=== PATIENT | male | born 1945 | race Caucasian/White ===

== ENCOUNTER 2018-04-04 00:35 | Emergency (ER) | payer MEDICARE, OTHER ==
--- NOTE | 2018-04-04 01:19 | ERPHSYRPT ---
- History of Present Illness Time Seen by Provider: 04/04/18 01:15 Source: patient Exam Limitations: no limitations Patient Subjective Stated Complaint: pt is alert and oriented. pt is ambulatory. pt states he fell from a standing postion on a small step stool. he landed on his left side on a cinder block. pt has no obvious deformaties, no bruising, no open wounds. pt denies LOC, or hitting his head. pt denies dizziness and attributes the fall to loss of balance. tender upon palpatation. some firmness noted to the left side where pt states pain is. Triage Nursing Assessment: see above Physician History: pt hit left lateral flank and his increasing pain after fall from step onto concrete block - no LOC no other c/o injury Occurred: this evening Reason for Fall: slipped Injuries/Pain Location: abdomen Loss of Consciousness: no loss of consciousness Quality: fullness, throbbing Severity of Pain-Max: moderate Severity of Pain-Current: moderate Associated Symptoms (Fall): abdominal pain, back pain Allergies/Adverse Reactions: Sulfa (Sulfonamide Antibiotics) Allergy (Mild, Verified 03/25/18 15:08) Rash Home Medications: Fexofenadine HCl [Jessica] 180 mg PO DAILY 03/25/18 [History] Glipizide Xl 5 mg [Glucotrol Xl 5 MG] 5 mg PO QAM 03/25/18 [History] Glipizide [Glipizide ER] 10 mg PO QPM 03/25/18 [History] Lisinopril 5 mg [Zestril 5 MG] 5 mg PO BID 03/25/18 [History] Metformin HCl [Glucophage] 1,000 mg PO BID 03/25/18 [History] Omeprazole Magnesium [Prilosec Otc] 20 mg PO DAILY 03/25/18 [History] Saw [place] Fruit [Saw [place]] 450 mg PO BID 03/25/18 [History] Hx Tetanus, Diphtheria Vaccination/Date Given: Yes Hx Influenza Vaccination/Date Given: No Hx Pneumococcal Vaccination/Date Given: No Immunizations Up to Date: Yes - Review of Systems Constitutional: No Fever, No Chills Eyes: No Symptoms Ears, Nose, & Throat: No Symptoms Respiratory: No Cough, No Dyspnea Cardiac: No Chest Pain, No Edema, No Syncope Abdominal/Gastrointestinal: Abdominal Pain, No Nausea, No Vomiting, No Diarrhea Genitourinary Symptoms: No Dysuria Musculoskeletal: Back Pain, No Neck Pain Skin: No Rash Neurological: No Dizziness, No Focal Weakness, No Sensory Changes Psychological: No Symptoms Endocrine: No Symptoms All Other Systems: Reviewed and Negative - Past Medical History Pertinent Past Medical History: Yes Neurological History: No Pertinent History ENT History: No Pertinent History Cardiac History: Hypertension Respiratory History: No Pertinent History Endocrine Medical History: Diabetes Type II Musculoskeletal History: Arthritis GI Medical History: GERD, Ulcer History: No Pertinent History Psycho-Social History: No Pertinent History Male Reproductive Disorders: No Pertinent History Other Medical History: hx hiatal hernia - Past Surgical History Past Surgical History: Yes Neuro Surgical History: No Pertinent History Cardiac: No Pertinent History Respiratory: No Pertinent History Gastrointestinal: Cholecystectomy Genitourinary: No Pertinent History Musculoskeletal: Orthopedic Surgery Male Surgical History: No Pertinent History Other Surgical History: Knee surgery both right x2 - Social History Smoking Status: Never smoker Exposure to second hand smoke: No Drug Use: none - Nursing Vital Signs Nursing Vital Signs: Initial Vital Signs Temperature 97.9 F 04/04/18 00:36 Pulse Rate 68 04/04/18 00:36 Respiratory Rate 18 04/04/18 00:36 Blood Pressure 178/75 04/04/18 00:36 O2 Sat by Pulse Oximetry 99 04/04/18 00:36 Pain Scale Pain Intensity 5 - Kyle Coma Score Best Eye Response (Kyle): (4) open spontaneously Best Verbal Response (Kyle): (5) oriented Best Motor Response ([place]): (6) obeys commands [place] Total: 15 - Physical Exam General Appearance: no apparent distress, alert Head Injury: no evidence of injury Eye Exam: PERRL/EOMI ENT Exam: airway nml Neck Exam: normal inspection, No tenderness Respiratory/Chest Exam: normal breath sounds, No chest tenderness, No respiratory distress Cardiovascular Exam: normal heart sounds, regular rate/rhythm Gastrointestinal Exam: soft, No tenderness, No distention, No guarding, No ecchymosis Rectal Exam: deferred Back Exam: normal inspection, No vertebral tenderness Extremity Exam: normal inspection, normal range of motion, pelvis stable, No deformities Neurologic Exam: alert, oriented x 3, cooperative, sensation nml, No motor deficits Skin Exam: normal color, warm, dry SpO2: 99 Oxygen Delivery: Room Air - Course Nursing assessment & vital signs reviewed: Yes - CT Exams Abdomen/Pelvis CT Interpretation: Tele-radiologist Report, DJD, Normal Appendix, No Fracture Ordered Tests: Active Orders 24 hr Category Date Time Status Clean Catch Urine Specimen STAT Care 04/04/18 01:19 Active IV Insertion STAT Care 04/04/18 02:46 Active NPO (ED) STAT Care 04/04/18 01:19 Active ABDOMEN AND PELVIS W/0 CONTRAS [CT] Stat Exams 04/04/18 01:20 Taken RECONSTRUCTION [CT] Routine Exams 04/04/18 01:32 Taken AMYLASE Stat Lab 04/04/18 01:37 Completed CBC W DIFF Stat Lab 04/04/18 01:37 Completed CMP Stat Lab 04/04/18 01:37 Completed LIPASE Stat Lab 04/04/18 01:37 Completed Lactic Acid Stat Lab 04/04/18 01:35 Completed Lactic Acid Stat Lab 04/04/18 04:10 Results UA W/RFX UR CULTURE Stat Lab 04/04/18 03:36 Completed Medication Summary Discontinued Medications Generic Name Dose Route Start Last Admin Trade Name Micahq PRN Reason Stop Dose Admin Sodium Chloride 1,000 mls @ 999 mls/hr 04/04/18 02:46 04/04/18 03:18 Sodium Chloride 0.9% 1000 Ml IV 04/04/18 03:46 999 mls/hr .Q1H1M STA Administration Sodium Chloride Confirm 04/04/18 03:13 Sodium Chloride 0.9% 1000 Ml Administered 04/04/18 03:14 Dose 1,000 mls @ ud .ROUTE .STK-MED ONE Lab/Rad Data: Laboratory Result Diagrams 04/04/18 01:37 04/04/18 01:37 Laboratory Results 04/04/18 04/04/18 04/04/18 Range/Units 04:10 03:36 01:37 WBC (4.0-10.5) K/mm3 RBC (4.1-5.6) M/mm3 Hgb (12.5-18.0) gm/dl Hct (42-50) % MCV (78-100) fl MCH (26-32) pg MCHC (32-36) g/dl RDW (11.5-14.0) % Plt Count (150-450) K/mm3 MPV (6-9.5) fl Gran % (36.0-66.0) % Eos # (Auto) (0-0.5) Absolute Lymphs (auto) (1.0-4.6) Absolute Monos (auto) (0.0-1.3) Lymphocytes % (24.0-44.0) % Monocytes % (0.0-12.0) % Eosinophils % (0.00-5.0) % Basophils % (0.0-0.4) % Absolute Granulocytes (1.4-6.9) Basophils # (0-0.4) Sodium 138 (137-145) mmol/L Potassium 3.8 (3.5-5.1) mmol/L Chloride 104 (98-107) mmol/L Carbon Dioxide 22 (22-30) mmol/L Anion Gap 15.5 H (5-15) MEQ/L BUN 19 (9-20) mg/dL Creatinine 1.13 (0.66-1.25) mg/dL Estimated GFR > 60.0 ML/MIN Glucose 304 H (74-106) mg/dL Lactic Acid 1.9 (0.4-2.0) Calcium 9.8 (8.4-10.2) mg/dL Total Bilirubin 0.40 (0.2-1.3) mg/dL AST 24 (17-59) U/L ALT 25 (0-50) U/L Alkaline Phosphatase 80 (38-126) U/L Serum Total Protein 6.9 (6.3-8.2) g/dL Albumin 4.4 (3.5-5.0) g/dL Amylase 54 (30-110) U/L Lipase 94 (23-300) U/L Urine Color STRAW (YELLOW) Urine Appearance CLEAR (CLEAR) Urine pH 5.0 (5-6) Ur Specific [place] 1.014 (1.005-1.025) Urine Protein NEGATIVE (Negative) Urine Ketones NEGATIVE (NEGATIVE) Urine Blood MODERATE (0-5) Rene/ul Urine Nitrite NEGATIVE (NEGATIVE) Urine Bilirubin NEGATIVE (NEGATIVE) Urine Urobilinogen NEGATIVE (0-1) mg/dL Ur Leukocyte Esterase NEGATIVE (NEGATIVE) Urine WBC (Auto) 0-2 (0-5) /HPF Urine RBC (Auto) 6-10 (0-2) /HPF U Epithel Cells (Auto) RARE (FEW) /HPF Urine Mucus (Auto) SLIGHT (NEGATIVE) /HPF Urine Culture Reflexed NO (NO) Urine Glucose >=500 (NEGATIVE) mg/dL 04/04/18 04/04/18 Range/Units 01:37 01:35 WBC 5.5 (4.0-10.5) K/mm3 RBC 4.50 (4.1-5.6) M/mm3 Hgb 12.6 (12.5-18.0) gm/dl Hct 38.6 L (42-50) % MCV 85.8 (78-100) fl MCH 28.0 (26-32) pg MCHC 32.6 (32-36) g/dl RDW 15.0 H (11.5-14.0) % Plt Count 134 L (150-450) K/mm3 MPV 10.6 H (6-9.5) fl Gran % 64.5 (36.0-66.0) % Eos # (Auto) 0.13 (0-0.5) Absolute Lymphs (auto) 1.37 (1.0-4.6) Absolute Monos (auto) 0.45 (0.0-1.3) Lymphocytes % 24.7 (24.0-44.0) % Monocytes % 8.1 (0.0-12.0) % Eosinophils % 2.3 (0.00-5.0) % Basophils % 0.4 (0.0-0.4) % Absolute Granulocytes 3.57 (1.4-6.9) Basophils # 0.02 (0-0.4) Sodium (137-145) mmol/L Potassium (3.5-5.1) mmol/L Chloride (98-107) mmol/L Carbon Dioxide (22-30) mmol/L Anion Gap (5-15) MEQ/L BUN (9-20) mg/dL Creatinine (0.66-1.25) mg/dL Estimated GFR ML/MIN Glucose (74-106) mg/dL Lactic Acid 2.6 H (0.4-2.0) Calcium (8.4-10.2) mg/dL Total Bilirubin (0.2-1.3) mg/dL AST (17-59) U/L ALT (0-50) U/L Alkaline Phosphatase (38-126) U/L Serum Total Protein (6.3-8.2) g/dL Albumin (3.5-5.0) g/dL Amylase (30-110) U/L Lipase (23-300) U/L Urine Color (YELLOW) Urine Appearance (CLEAR) Urine pH (5-6) Ur Specific [place] (1.005-1.025) Urine Protein (Negative) Urine Ketones (NEGATIVE) Urine Blood (0-5) Rene/ul Urine Nitrite (NEGATIVE) Urine Bilirubin (NEGATIVE) Urine Urobilinogen (0-1) mg/dL Ur Leukocyte Esterase (NEGATIVE) Urine WBC (Auto) (0-5) /HPF Urine RBC (Auto) (0-2) /HPF U Epithel Cells (Auto) (FEW) /HPF Urine Mucus (Auto) (NEGATIVE) /HPF Urine Culture Reflexed (NO) Urine Glucose (NEGATIVE) mg/dL - Progress Progress: improved, re-examined Counseled pt/family regarding: lab results, diagnosis, need for follow-up, rad results - Departure Time of Disposition: 04:36 Departure Disposition: Home Clinical Impression: Hematuria, left flank contusion Condition: Good Critical Care Time: No Instructions: Contusion (DC), Preventing Falls, Blood in the Urine (Hematuria) in Adults Additional Instructions: followup with your to recheck the blood in the urine; although the CT did not show any serious internal injury, there still could be pathology evolving so return if any dizziness, vomiting, or increased pain ;
[2018-04-04 01:41] LABS: BASOPHIL % 0.4 % (0.0-0.4); Basophil (Absolute #) 0.02 (0-0.4); Eosinophil % 2.3 % (0.00-5.0); Eosinophil (Absolute #) 0.13 (0-0.5); Granulocyte Absolute (ANC) 3.57 (1.4-6.9); Granulocytes % 64.5 % (36.0-66.0); Hematocrit 38.6 % (42-50); Hemoglobin 12.6 gm/dl (12.5-18.0); Lymphocyte (Absolute #) 1.37 (1.0-4.6); Lymphocytes % 24.7 % (24.0-44.0); Mean Cell Volume 85.8 fl (78-100); Mean Corpuscular Hgb Concent. 32.6 g/dl (32-36); Mean Platelet Volume 10.6 fl (6-9.5); Monocyte (Absolute #) 0.45 (0.0-1.3); Monocytes % 8.1 % (0.0-12.0); Platelet Count 134 K/mm3 (150-450); White Blood Count 5.5 K/mm3 (4.0-10.5)
[2018-04-04 01:42] LABS: Lactic Acid 2.6 (0.4-2.0)
[2018-04-04 01:58] LABS: ALBUMIN 4.4 g/dL (3.5-5.0); ALKALINE PHOSPHATASE 80 U/L (38-126); AMYLASE 54 U/L (30-110); ANION GAP 15.5 MEQ/L (5-15); BLOOD UREA NITROGEN 19 mg/dL (9-20); CHLORIDE 104 mmol/L (98-107); Calcium 9.8 mg/dL (8.4-10.2); Carbon Dioxide 22 mmol/L (22-30); Creatinine 1 1.13 mg/dL (0.66-1.25); Glucose 304 mg/dL (74-106); LIPASE 94 U/L (23-300); Potassium 3.8 mmol/L (3.5-5.1); SGOT/AST 24 U/L (17-59); SGPT/ALT 25 U/L (0-50); SODIUM 138 mmol/L (137-145); Total Protein 6.9 g/dL (6.3-8.2)
[2018-04-04] MEDS ORDERED: Sodium Chloride 0.9% 1000 ML 1,000 ML IV STA (02:46)
[2018-04-04] MEDS ORDERED: Sodium Chloride 0.9% 1000 ML 1,000 ML ONE (03:13)
[2018-04-04 03:45] LABS: Appearance CLEAR (CLEAR); Bilirubin NEGATIVE (NEGATIVE); Blood MODERATE Ery/ul (0-5); Glucose >=500 mg/dL (NEGATIVE); Ketones NEGATIVE (NEGATIVE); Leukocyte Esterase NEGATIVE (NEGATIVE); Nitrite NEGATIVE (NEGATIVE); Protein,Urine Dip NEGATIVE (Negative); Specific Gravity 1.014 (1.005-1.025); Urobilinogen NEGATIVE mg/dL (0-1)
[2018-04-04 04:14] LABS: Lactic Acid 1.9 (0.4-2.0)
[2018-04-04 05:11] VITALS: BP 163/67; PULSE 68; O2SAT 100
--- NOTE | 2018-04-04 07:14 | XRAY ---
Indication: Left-sided pain following fall. Multiple contiguous axial images obtained through the abdomen and pelvis without contrast as ordered. Comparison: None Lung bases demonstrates bibasilar fibrosis/scarring and mild bilateral dependent atelectasis. No infiltrate or effusion. Heart is not enlarged. Moderate sized hiatal hernia. Noncontrasted stomach and bowel loops appear nonobstructed. Mild diffuse scattered colonic fecal debris throughout. Mild diffuse fatty liver. Previous cholecystectomy. Spleen is enlarged measuring 16 cm in greatest axial dimension. Enlarged prostate gland impresses on the base of the bladder. Remaining liver, pancreas, spleen, adrenal glands, kidneys, ureters, and bladder appear unremarkable for noncontrast exam. Mild aortoiliac calcifications without AAA. Osseous structures intact with mild multilevel spinal bridging/nonbridging endplate osteophytes and mild degenerative changes of both hips. No ventral or inguinal hernias. Impression: 1. Fecal stasis without obstruction. 2. Hiatal hernia, fatty liver, splenomegaly, and enlarged prostate gland. 3. No acute intra-abdominal/pelvic abnormalities on this noncontrasted exam. Comment: Preliminary interpretation was made by [facility]. No critical discrepancy. CTDI 28.03
--- NOTE | 2018-04-04 07:18 | XRAY ---
Indication: Left-sided pain following fall. Axial, sagittal, and coronal reformatted images of the lumbar spine performed using the raw data from the CT abdomen/pelvis study of the same day. Comparison: None No acute fracture or suspicious bony lesions. There are mild multilevel bridging/non-bridging endplate osteophytes, mild L3-L4-L5 broad-based disc bulge, moderate bilateral L4-L5-S1 degenerative facet hypertrophy, and degenerative fusion of the right SI joint. No obvious large disc herniation or spinal canal stenosis. Sagittal and coronal reformatted images demonstrates normal lumbar alignment with vertebral body heights and disc spaces maintained. No compression fracture or subluxation. CT abdomen/pelvis reported separately. Impression: 1. Negative acute fracture. 2. Multilevel degenerative spondylosis. Comment: Preliminary interpretation was made by [facility]. No critical discrepancy. CTDI 28.03
== END 2018-04-04 05:09 | disposition home or self-care (01) ==
LOC: ED 00:35
DX: R31.9 Hematuria, unspecified (principal); S30.1XXA Contusion of abdominal wall, initial encounter; W17.89XA Other fall from one level to another, initial encounter; Y92.9 Unspecified place or not applicable; E11.9 Type 2 diabetes mellitus without complications; Z79.4 Long term (current) use of insulin; K21.9 Gastro-esophageal reflux disease without esophagitis; M19.90 Unspecified osteoarthritis, unspecified site; I10 Essential (primary) hypertension; K44.9 Diaphragmatic hernia without obstruction or gangrene
CPT/HCPCS: 36000; 36415; 74176; 76376; 80053; 81001; 82150; 83605; 83690; 85025; 96360; 99284

== ENCOUNTER 2018-04-19 08:06 | Day surgery (SDC) | payer MEDICARE ==
--- NOTE | 2018-04-19 07:45 | HP ---
DATE OF SURGERY: 04/19/2018 HISTORY OF PRESENT ILLNESS: The patient's last colonoscopy was five years ago. He has prior history of polyps. He is in need of follow up screening colonoscopy. He denies any bloody stools or change in bowel movements. He has had loose stools since he had his gallbladder out in the past. PAST MEDICAL HISTORY: Diabetes, hypertension. PAST SURGICAL HISTORY: Cholecystectomy. Right knee surgery. Forearm surgery in the past. MEDICATIONS: Zyrtec, lisinopril, glipizide, metformin, Prilosec. ALLERGIES: SULFA. FAMILY HISTORY: Negative for colon cancer. Diabetes. Heart disease. SOCIAL HISTORY: No smoking or alcohol abuse. REVIEW OF SYSTEMS: Twelve systems reviewed. No chest pain or palpitations other systems negative or noncontributory as above and per preadmission questionnaire. PHYSICAL EXAMINATION: GENERAL: No acute distress. HEENT: Sclerae nonicteric. NECK: No JVD. CHEST: Equal excursion, nonlabored breathing. CVS: Regular rate and rhythm. ABDOMEN: Soft. No peritoneal signs. EXTREMITIES: No significant edema. NEURO: Alert, oriented, moving extremities symmetrically. No gross motor deficits noted. RECTAL: Deferred timed to endoscopy exam. IMPRESSION: History of polyp, in need of screening colonoscopy. I feel the patient is a candidate. Shown the risk sheet, explained the procedure in detail including but not limited to bleeding or infection, small risk of bowel injury or perforation possibly requiring open procedure, small risk of missed or nondiagnosis or incomplete exam possibly requiring barium enema, other studies or procedures, general risk of anesthesia or sedation but not limited to. He understands and agrees to the planned procedure and will proceed with outpatient follow up screening colonoscopy.
[2018-04-19] MEDS ORDERED: DIPRIVAN 200 MG/20 ML IV ONE (08:07)
[2018-04-19] MEDS ORDERED: Lactated Ringers 1,000 ML IV SCH (08:30)
[2018-04-19 08:40] VITALS: O2SAT 98
[2018-04-19] MEDS ORDERED: Lactated Ringers 1,000 ML IV ONE (10:31)
[2018-04-19 11:31] VITALS: PULSE 66
[2018-04-19 11:41] VITALS: BP 176/78
--- NOTE | 2018-04-19 11:54 | OP ---
SURGERY DATE/TIME: 04/19/2018 1012 PREOPERATIVE DIAGNOSIS: History of polyps, need follow up screening colonoscopy. POSTOPERATIVE DIAGNOSES: 1) Polyp sigmoid colon x2. 2) Diverticulosis. 3) Small internal and external hemorrhoids. 4) Somewhat limited bowel prep. 5) Prominent ileocecal valve. PROCEDURES: 1) Colonoscopy to cecum with cold biopsy of prominent ileocecal valve. 2) Hot biopsy removal of small raised lesion versus hyperplastic lesion transverse colon. 3) Hot snare polypectomy sigmoid colon polyps x2 (largest is about 8 mm, smaller polyp was about 3 mm). SURGEON: Dr. Luis Laboy. VACUUM CLOSING MACHINE OPERATOR: Min Gutierrez, Medical Student III. ANESTHESIA: MAC. ESTIMATED BLOOD LOSS: Minimal. INDICATIONS: As noted above. Risks and benefits explained in detail but not limited to and consent obtained. DESCRIPTION OF PROCEDURE AND FINDINGS: The patient is taken to the endoscopy room. MAC anesthesia introduced. After official time out and no disagreement with planned procedure, digital rectal exam did not reveal any rectal masses. Video colonoscope inserted and passed up through the tortuous sigmoid, descending, transverse and ascending colon. With external pressure and positioning on his back the scope was able to be passed around to the cecum. Appendiceal orifice well visualized as well as the valve. The valve was prominent. The very tip of the terminal ileum was grossly unremarkable. As there was prominent valve cold biopsies taken for definitive path. Despite normal variation for the patient for completeness cold biopsy taken. Good hemostasis noted. Prep overall was somewhat limited with liquidy, semi-solid and some solid stool limiting the exam. It was suction irrigated as well as possible but did limit the exam for very tiny lesions. On withdrawal of the scope there were no signs of any large polyps, masses or obstructing lesions. There was a small 2 mm raised area in the transverse colon whether this is just hyperplastic or hyperplasia of the mucosa was removed with hot biopsy forceps with brief bursts of cautery. Scope pulled back to the left colon. He had some mild diverticulosis. Back to the sigmoid colon and more proximal sigmoid colon there was about 8 mm polyp that was removed with hot snare polypectomy with brief bursts of cautery. It had brief ooze at the base, appeared to have good hemostasis at the end of the procedure and this was retrieved per staff. The scope is then pulled back to the more distal sigmoid colon. Another smaller polyp about 3 mm in size removed with hot snare polypectomy with brief bursts of cautery. Good hemostasis noted and this was retrieved according to the staff and passed off. Otherwise he had some small internal and external hemorrhoids. There were no signs of any large polyps, masses or obstructing lesions. He had some small internal and external hemorrhoids. The scope is withdrawn. The patient tolerated the procedure well. Findings discussed with the family out in the waiting area.
== END 2018-04-19 11:45 | disposition home or self-care (01) ==
LOC: SDC 08:06
PROVIDERS: ATTEND Surgery
DX: K63.5 Polyp of colon (principal); Z12.11 Encounter for screening for malignant neoplasm of colon; Z86.010 Personal history of colon polyps; K57.90 Diverticulosis of intestine, part unspecified, without perforation or abscess without bleeding; K64.4 Residual hemorrhoidal skin tags; K64.8 Other hemorrhoids; K63.89 Other specified diseases of intestine; E11.9 Type 2 diabetes mellitus without complications; I10 Essential (primary) hypertension; Z79.899 Other long term (current) drug therapy
CPT/HCPCS: 82962; 94250; 99100; J2704

== ENCOUNTER 2018-11-22 21:11 | Emergency (ER) | payer MEDICARE, OTHER ==
[2018-11-22] MEDS ORDERED: Norco 10/325 MG Tablet PO ONE (21:58)
[2018-11-22] MEDS ORDERED: Norco 10/325 MG Tablet ONE (22:01)
--- NOTE | 2018-11-22 22:35 | ERPHSYRPT ---
- History of Present Illness Time Seen by Provider: 11/22/18 22:05 Source: patient Exam Limitations: clinical condition Patient Subjective Stated Complaint: Knee pain Triage Nursing Assessment: Pt brought in by family by wheelchair, pt states hes been having pain since thu, no injury or fall, no abnormal deformities, no bruising, pain is a 5 just laying there but worsens with movement. Can bend knee but hurts when he goes to relax it Physician History: PATIENT WITH HISTORY OF PREVIOUS KNEE SURGERY COMPLAINS OF LEFT KNEE PAIN OVER PAST 4 DAYS, WORSE UPON RANGE OF MOTION. DENIES HISTORY OF INJURY OR TRAUMA. DENIES SWELLING OR DEFORMITY. Method of Injury: unknown Occurred: days ago Quality: constant Severity of Pain-Max: moderate Severity of Pain-Current: moderate Lower Extremities Pain: knee: left Modifying Factors: Improves With: movement Associated Symptoms: unable to bear weight Allergies/Adverse Reactions: Sulfa (Sulfonamide Antibiotics) Allergy (Mild, Verified 03/25/18 15:08) Rash Home Medications: Fexofenadine HCl [Jessica] 180 mg PO DAILY 03/25/18 [History] Glipizide Xl 5 mg [Glucotrol Xl 5 MG] 5 mg PO QAM 03/25/18 [History] Glipizide [Glipizide ER] 10 mg PO QPM 03/25/18 [History] Lisinopril 5 mg [Zestril 5 MG] 5 mg PO BID 03/25/18 [History] Metformin HCl [Glucophage] 1,000 mg PO BID 03/25/18 [History] Omeprazole Magnesium [Prilosec Otc] 20 mg PO DAILY 03/25/18 [History] Saw [place] Fruit [Saw [place]] 450 mg PO BID 03/25/18 [History] Cholecalciferol (Vitamin D3) [Vitamin D3] 1,000 units PO DAILY 04/19/18 [History ] Hx Tetanus, Diphtheria Vaccination/Date Given: Yes Hx Influenza Vaccination/Date Given: No Hx Pneumococcal Vaccination/Date Given: No Immunizations Up to Date: Yes - Review of Systems Constitutional: No Symptoms Ears, Nose, & Throat: No Symptoms Respiratory: No Symptoms Cardiac: No Symptoms Musculoskeletal: Joint Pain Psychological: No Symptoms Endocrine: No Symptoms - Past Medical History Pertinent Past Medical History: Yes Neurological History: No Pertinent History ENT History: No Pertinent History Cardiac History: Hypertension Respiratory History: No Pertinent History Endocrine Medical History: Diabetes Type II Musculoskeletal History: Arthritis GI Medical History: GERD, Ulcer History: No Pertinent History Psycho-Social History: No Pertinent History Male Reproductive Disorders: No Pertinent History Other Medical History: hx hiatal hernia - Past Surgical History Past Surgical History: Yes Neuro Surgical History: No Pertinent History Cardiac: No Pertinent History Respiratory: No Pertinent History Gastrointestinal: Cholecystectomy, Rectal Surgery Genitourinary: No Pertinent History Musculoskeletal: Orthopedic Surgery Male Surgical History: No Pertinent History Other Surgical History: Knee scope surgery both right x2 - Social History Smoking Status: Never smoker Exposure to second hand smoke: No Drug Use: none - Nursing Vital Signs Nursing Vital Signs: Initial Vital Signs Temperature 97.9 F 11/22/18 21:52 Pulse Rate 69 11/22/18 21:52 Blood Pressure 180/66 11/22/18 21:52 O2 Sat by Pulse Oximetry 100 11/22/18 21:52 Pain Scale Pain Intensity 5 - Physical Exam General Appearance: alert Eyes, Ears, Nose, Throat Exam: moist mucous membranes Neck Exam: non-tender, supple Cardiovascular/Respiratory Exam: chest non-tender, normal breath sounds, regular rate/rhythm, no respiratory distress Gastrointestinal/Abdominal Exam: non-tender, guarding Back Exam: normal inspection, No vertebral tenderness Knees Exam: left knee: pain (LEFT KNEE, PATELLA, MIDLINE AND MOBILE, FULL RANGE OF MOTION WITH PAIN, NO SWELLING OR JOINT LAXIY, LEFT POPLITEAL AND PEDIS PULSE 2+), soft tissue tenderness Neuro/Tendon Exam: normal sensation, normal motor functions Mental Status Exam: alert, oriented x 3, cooperative Skin Exam: normal color, warm, dry SpO2: 100 - Radiology Exams Left Knee X-ray Interpretation: Interpreted by me, Negative, No Fracture (DEGENERATIVE ARTHRITIS, PATELLA SPURS) Ordered Tests: Active Orders 24 hr Category Date Time Status Crutches STAT Care 11/22/18 22:31 Active KNEE (3 VIEWS) Stat Exams 11/22/18 21:57 Taken Medication Summary Discontinued Medications Generic Name Dose Route Start Last Admin Trade Name Freq PRN Reason Stop Dose Admin Hydrocodone Bitart/Acetaminophen 1 tab 11/22/18 21:58 11/22/18 22:02 [place] 10/325 Mg Tablet PO 11/22/18 21:59 1 tab STAT ONE Administration Hydrocodone Bitart/Acetaminophen Confirm 11/22/18 22:01 [place] 10/325 Mg Tablet Administered 11/22/18 22:02 Dose 1 tab .ROUTE .STK-MED ONE - Progress Progress Note: 11/22/18 23:16 CRUTCHES, NORCO 10/325 ORALLY - Departure Departure Disposition: Home Clinical Impression: LEFT KNEE PAIN, DEGENERATIVE ARTHRITIS Condition: Stable Critical Care Time: No Referrals: [facility] SP[facility]ITUAL CARE COORDINATOR [Primary Care Provider] - Additional Instructions: AMBULATE USING CRUTCHES NONWEIGHT BEARING LEFT FOOT FOR 5 DAYS. TAKE OVER THE COUNTER MOTRIN 400 OR 600MG EVERY 6 HOURS FOR MILD TO MODERATE PAIN. NORCO 5/ 325 EVERY 6 HOURS FOR SEVERE PAIN. CONSULT YOUR PRIMARY CARE PROVIDER FOR EVALAUTION AND REFERRAL TO ORTHOPEDIC SURGEON. Prescriptions: Hydrocodone/APAP 5-325 Tab^^^ [[place] 5-325 Tablet^^^] 1 tab PO Q6HPRN PRN #10 tablet MDD 6 PRN Reason: Pain Ibuprofen [IBUPROFEN 400 MG TABLET] 1 tablet PO Q6HPRN PRN #20 tablet PRN Reason: Pain Ibuprofen [IBUPROFEN 400 MG TABLET] 1 tablet PO Q6HPRN PRN #20 tablet PRN Reason: Pain
[2018-11-22 23:54] VITALS: BP 155/77; PULSE 67; O2SAT 97
--- NOTE | 2018-11-23 09:48 | XRAY ---
Indication: Chronic pain. Comparison: None 3 views of the left knee demonstrates minimal medial joint space narrowing/spurring, medial degenerative chondrocalcinosis, tiny posterior heterotopic ossification, and patella/tibial tuberosity spurring. No other bony, articular, or soft tissue abnormalities.
== END 2018-11-22 23:51 | disposition home or self-care (01) ==
LOC: ED 21:11
DX: M25.562 Pain in left knee (principal); M17.12 Unilateral primary osteoarthritis, left knee; E11.9 Type 2 diabetes mellitus without complications; I10 Essential (primary) hypertension; Z79.899 Other long term (current) drug therapy
CPT/HCPCS: 73562; 99283; A9270-GY

== ENCOUNTER 2021-03-04 10:20 | Day surgery (SDC) | payer MEDICARE ==
--- NOTE | 2021-03-04 09:06 | HP ---
DATE OF SURGERY: 03/04/2021 HISTORY OF PRESENT ILLNESS: The patient is a 76 year-old with history of polyps. No bloody stools. No change in bowel movements. Family history negative for colon cancer. History of polyps, in need of follow up screening colonoscopy. I feel he is a candidate. PAST MEDICAL HISTORY: Diabetes. Hypertension. PAST SURGICAL HISTORY: Prior colonoscopy in the past. MEDICATIONS: Zyrtec, lisinopril, glipizide, Metformin, Prilosec. ALLERGIES: SULFA. FAMILY HISTORY: Negative for colon cancer. SOCIAL HISTORY: No smoking or alcohol abuse. REVIEW OF SYSTEMS: Fourteen systems reviewed. No chest pain or palpitations. Other systems negative or noncontributory as above and per preadmission questionnaire. PHYSICAL EXAMINATION: GENERAL: No acute distress. HEENT: Sclerae nonicteric. NECK: No JVD. CHEST: Equal excursion, nonlabored breathing. CVS: Regular rate and rhythm. ABDOMEN: Soft. No peritoneal signs. EXTREMITIES: No significant edema. NEURO: Alert, oriented, moving extremities symmetrically. RECTAL: Deferred timed to endoscopy exam. PSYCH: Appropriate mood and affect. IMPRESSION: History of polyps, need for screening colonoscopy. I feel the patient is a candidate. Shown the risk sheet, explained the procedure in detail including but not limited to bleeding or infection, risk of bowel injury or perforation possibly requiring open procedure, risk of missed or nondiagnosis or incomplete exam possibly requiring barium enema, other studies or procedures, general risk of anesthesia or sedation, risk of bowel prep but not limited to, consent obtained. Will proceed with outpatient follow up screening colonoscopy.
[2021-03-04] MEDS ORDERED: Lactated Ringers 1,000 ML IV ONE (10:27)
[2021-03-04] MEDS ORDERED: Lactated Ringers 1,000 ML IV SCH (10:30)
[2021-03-04] MEDS ORDERED: DIPRIVAN 200 MG/20 ML IV ONE ×2 (12:19→12:20)
[2021-03-04 13:23] VITALS: O2SAT 100
[2021-03-04 13:24] VITALS: BP 179/70; PULSE 68
--- NOTE | 2021-03-05 10:04 | OP ---
SURGERY DATE/TIME: 03/04/2021 1210 PREOPERATIVE DIAGNOSIS: History of polyps, need for follow up screening colonoscopy. POSTOPERATIVE DIAGNOSES: 1) ASA Class II. 2) Fair but slightly limited bowel prep. 3) Early small polyp sigmoid colon. 4) Small early polyp versus hyperplastic lesion versus hyperplasia mucosa rectum. 5) Few small pits. 6) Withdrawal time 8 minutes. PROCEDURES: 1) Colonoscopy to terminal ileum retrograde ileoscopy. 2) Hot snare polypectomy sigmoid colon polyp. 3) Hot biopsy removal small early polyp versus hyperplastic lesion versus hyperplasia mucosa. SURGEON: Dr. Luis Laboy. [employer] VALVE MECHANIC: Aston Del Valle, Medical Student III. ANESTHESIA: MAC. ESTIMATED BLOOD LOSS: Minimal. INDICATIONS: As noted above. Risks and benefits explained in detail but not limited to and consent obtained. DESCRIPTION OF PROCEDURE AND FINDINGS: The patient is taken to the endoscopy room. MAC anesthesia introduced. After official time out and no disagreement with planned procedure, digital rectal exam did not reveal any rectal masses. Video colonoscope inserted and passed up through the slightly tortuous sigmoid, descending, transverse and ascending colon. With external pressure the scope was able to be passed around to the cecum. The last few centimeters there was a quite a bit of tortuosity. Slightly changing position and external pressure the scope was able to be passed to the cecum. Appendiceal orifice and valve well visualized and photo documented. The scope was able to be passed up the terminal ileum. Retrograde ileoscopy performed and grossly unremarkable. The scope is slowly and carefully withdrawn. Again, the prep did limit the exam slightly but fair prep but on the limited side. Suction irrigated the liquidy stool as well as possible just slightly limiting the exam for a small lesion. The scope slowly and carefully withdrawn over the next 8 minutes. There was a 3.5 mm polyp in the sigmoid colon was removed with hot snare polypectomy with brief bursts of cautery. It appeared to be totally removed. He had a few tiny scattered diverticula in the left colon. Otherwise, no signs of any other large polyps, masses or obstructing lesions. Again, the prep limited the exam for very small lesions. Small early polyp versus hyperplastic lesion versus hyperplasia mucosa in the rectum was removed with hot biopsy forceps with brief bursts of cautery this was about 1.5 mm in size. The scope is withdrawn. Findings discussed with the family out in the waiting area.
== END 2021-03-04 13:30 | disposition home or self-care (01) ==
LOC: SDC 10:20
PROVIDERS: ATTEND Surgery
DX: Z12.11 Encounter for screening for malignant neoplasm of colon (principal); Z86.010 Personal history of colon polyps; K62.1 Rectal polyp; D12.5 Benign neoplasm of sigmoid colon; E11.9 Type 2 diabetes mellitus without complications; I10 Essential (primary) hypertension; Z79.899 Other long term (current) drug therapy
CPT/HCPCS: 82947; 88305; 99100; J2704

== ENCOUNTER 2023-05-18 08:14 | Day surgery (SDC) | payer MEDICARE ==
--- NOTE | 2023-05-18 07:43 | HP ---
DATE OF SURGERY: 05/18/2023 HISTORY OF PRESENT ILLNESS: The patient is an 78-year-old gentleman with history of polyps, no bloody stools, no change in bowel movements and no pain. Family history negative for colon cancer. PAST MEDICAL HISTORY: Diabetes, reflux, hyperlipidemia, hypertension. PAST SURGICAL HISTORY: Colonoscopy. Knee replacement. MEDICATIONS: Omeprazole, saw palmetto. ALLERGIES: SULFA. FAMILY HISTORY: History of heart disease and diabetes. Negative for colon cancer. SOCIAL HISTORY: No smoking or alcohol abuse. REVIEW OF SYSTEMS: Twelve systems reviewed. No chest pain or palpitations. Other systems negative or noncontributory as above and per preadmission questionnaire. PHYSICAL EXAMINATION: Height 5'11". BMI 26.64. GENERAL: No acute distress. HEENT: Sclerae nonicteric. EOMI. Oral mucous membranes moist. NECK: No JVD. CHEST: Equal excursion, nonlabored breathing. CVS: Regular rate and rhythm. ABDOMEN: Soft. EXTREMITIES: No significant edema. NEURO: Alert, oriented, moving extremities symmetrically. RECTAL: Deferred timed to endoscopy exam. PSYCH: Appropriate mood and affect. SKIN: Dry. IMPRESSION: History of polyps, needs follow up screening colonoscopy. I feel he is a candidate. Risks and benefits explained detail including bleeding or infection, risk of bowel injury or perforation, risk of missed or nondiagnosis or incomplete exam possibly requiring barium enema, other studies or procedures or referrals, risk of anesthesia or sedation, risk of bowel prep but not limited to. Otherwise, continue medications for his hypertension, reflux, hyperlipidemia and diabetes. Will proceed with outpatient colonoscopy under MAC anesthesia.
[2023-05-18] MEDS ORDERED: Lactated Ringers 1,000 ML IV SCH (08:30)
[2023-05-18 08:41] VITALS: RESP 16
[2023-05-18] MEDS ORDERED: Lactated Ringers 1,000 ML IV ONE (09:06)
[2023-05-18] MEDS ORDERED: DIPRIVAN 200 MG/20 ML IV ONE ×2 (11:14→11:27)
[2023-05-18 12:03] VITALS: O2SAT 100
[2023-05-18 12:14] VITALS: TEMP 64
[2023-05-18 12:25] VITALS: BP 128/72; PULSE 68
--- NOTE | 2023-05-18 14:03 | OP ---
SURGERY DATE/TIME: 05/18/2023 1115 PREOPERATIVE DIAGNOSIS: History of polyps, needs follow up screening colonoscopy. POSTOPERATIVE DIAGNOSES: 1) Small polyp transverse colon. 2) Fair bowel prep. 3) Withdrawal time nine minutes. 4) ASA Class III. 5) Slightly atrophied anal papilla. PROCEDURES: 1) Colonoscopy to cecum. 2) Hot biopsy piecemeal polypectomy transverse colon polyp. 3) Cold biopsy benign appearing hypertrophied anal papilla. SURGEON: Dr. Luis Laboy. ANESTHESIA: MAC. ESTIMATED BLOOD LOSS: Minimal. INDICATIONS: As noted above. Risks and benefits explained in detail but not limited to and consent obtained. DESCRIPTION OF PROCEDURE AND FINDINGS: The patient is taken to the endoscopy room. MAC anesthesia induced. After official time out and no disagreement with planned procedure, digital rectal exam did not reveal any rectal masses. He did have some minimal internal and external hemorrhoids. Video colonoscope inserted and passed up through the slightly tortuous sigmoid, descending, transverse and ascending colon around to the cecum. Appendiceal orifice and valve well visualized and photo documented. Prep overall was fair. The scope is slowly and carefully withdrawn over the next nine minutes. There was a polyp in the transverse colon that was removed in piecemeal fashion that was about 3 mm in size removed in piecemeal fashion with hot biopsy polypectomy. Good hemostasis was noted. Papilla was seen to be hypertrophied this appeared to be smooth, benign and for completeness this was biopsied. The scope was withdrawn. The patient tolerated the procedure well. There were no immediate complications. There was no family available in the waiting area and will go back and check.
== END 2023-05-18 12:30 | disposition home or self-care (01) ==
LOC: SDC 08:14
PROVIDERS: ATTEND Surgery
DX: Z12.11 Encounter for screening for malignant neoplasm of colon (principal); Z09 Encounter for follow-up examination after completed treatment for conditions other than malignant neoplasm; Z86.010 Personal history of colon polyps; K63.5 Polyp of colon; K62.89 Other specified diseases of anus and rectum; E11.9 Type 2 diabetes mellitus without complications
CPT/HCPCS: 82947; 99100; J2704